=== PATIENT | female | born 1985 | race American Indian/Alaskan Native ===

== ENCOUNTER 2017-08-21 00:20 | Outpatient (CLI) | payer MEDICAID ==
[2017-08-21] MEDS ORDERED: LACTATED RINGERS 1,000 ML IV ONE (00:34)
[2017-08-21 00:46] VITALS: BP 134/78
[2017-08-21 01:04] LABS: Bilirubin,Urine NEG (Negative); Blood,Urine NEG (Negative); Color,Urine Yellow (Yellow); Mucus,Urine 1+ /HPF; Urobilinogen,Urine < 2.0 mg/dL (<2.0)
[2017-08-21] MEDS ORDERED: BRETHINE SUB-Q PRN (02:35)
== END 2017-08-21 03:15 | disposition home or self-care (01) ==
LOC: TRG 00:20
PROVIDERS: ATTEND Obstetrics & Gynecology
DX: O47.03 False labor before 37 completed weeks of gestation, third trimester (principal); Z3A.35 35 weeks gestation of pregnancy
CPT/HCPCS: 59025; 81001; 96360; 96372; J3105; J7120

== ENCOUNTER 2017-09-06 19:30 | Outpatient (CLI) | payer MEDICAID ==
[2017-09-06 21:34] VITALS: BP 135/88
--- NOTE | 2017-09-07 00:23 | Ultrasound Report ---
FINAL REPORT EXAM: US OB LIMITED HISTORY: wellbeing TECHNIQUE: Transabdominal sonographic evaluation was performed of the female pelvis with and without color Doppler imaging. PRIORS: None. FINDINGS: Single intrauterine . Amniotic fluid index estimated at 11.5 cm (normal range 7-24 cm). heart rate 148 beats per minute. Measurements: Last menstrual period-12/18/2016. Estimated date 37 weeks 3 days. IMPRESSION: Single, viable intrauterine with amniotic fluid index measuring within normal limits and heart rate measuring 148 beats per minute.
--- NOTE | 2017-09-07 00:26 | Ultrasound Report ---
FINAL REPORT EXAM: US OB BPP WO NON-STRESS HISTORY: wellbeing TECHNIQUE: Transabdominal sonographic evaluation was performed of the female pelvis with and without color Doppler imaging. PRIORS: None. FINDINGS: A single, viable intrauterine is present. Measurements: heart rate: 148 beats per minute. Amniotic fluid index: 11.5 cm Biophysical profile breathing movements, score 2 movement: Score 2 posture and tone: 2 Qualitative amniotic fluid value: 2 Total score for biophysical profile 8/8. IMPRESSION: Single, viable intrauterine present. Biophysical profile score 8/8.
== END 2017-09-07 00:24 | disposition home or self-care (01) ==
LOC: TRG 19:30
PROVIDERS: ATTEND Obstetrics & Gynecology
DX: O26.893 Other specified pregnancy related conditions, third trimester (principal); R10.9 Unspecified abdominal pain; Z3A.37 37 weeks gestation of pregnancy
CPT/HCPCS: 59025; 76815; 76819

== ENCOUNTER 2017-09-21 12:11 | Outpatient (CLI) | payer MEDICAID ==
[2017-09-21 12:41] VITALS: BP 122/73
--- NOTE | 2017-09-21 14:57 | Ultrasound Report ---
ULTRASOUND OB LIMITED History: Leaking amniotic fluid, rupture of membranes Technique: Transabdominal ultrasound with Doppler interrogation. Gestation: Single Position: Cephalic Amniotic Fluid: Normal CIERRA = 12.8 cm Heart Rate: 152 BPM
--- NOTE | 2017-09-21 14:57 | Ultrasound Report ---
ULTRASOUND BIOPHYSICAL PROFILE: History: well being Technique: Transabdominal ultrasound with Doppler interrogation. 2 - breathing movements 2 - movements 2 - posture and tone 2 - Qualitative amniotic fluid volume 8 - TOTAL SCORE OF POSSIBLE 8 Heart Rate (bpm) 152
== END 2017-09-21 15:20 | disposition home or self-care (01) ==
LOC: TRG 12:11
PROVIDERS: ATTEND Obstetrics & Gynecology
DX: O47.1 False labor at or after 37 completed weeks of gestation (principal); Z3A.39 39 weeks gestation of pregnancy; Z83.3 Family history of diabetes mellitus; Z82.49 Family history of ischemic heart disease and other diseases of the circulatory system
CPT/HCPCS: 59025; 76815; 76819

== ENCOUNTER 2017-09-28 15:17 | Inpatient (IN) | payer MEDICAID ==
--- NOTE | 2017-09-28 15:28 | History and Physical Report ---
History of Present Illness Date of examination: 09/28/17 Chief complaint: SROM meconium fluid History of present illness: Pt is a 32yo BF EDC 09/24/17; EGA 40 5/7 weeks presents to L&D complaining of SROM @ followed by [facility]'s q 3-5 mins. She received care at [facility] since 12 weeks, and course significant for +HBSag and + HSV and recently Thrombocytopenia. She was also co-managed by [facility] for GDM - diet controlled. records were not available during labor , but GBS was Negative. Past History Past Medical History: diabetes (GDM), hepatitis Past Surgical History: no surgical history [employer] History: hepatitis B, herpes Family/Genetic History: none Social history: no significant social history, single - Obstetrical History Expected Date of Delivery: 09/24/17 Actual Gestation: 40 Week(s) 5 Day(s) : 1 Medications and Allergies Allergies Allergy/AdvReac Type Severity Reaction Status Date / Time No Known Allergies Allergy Verified 08/21/17 00:38 Home Medications Medication Instructions Recorded Confirmed Last Taken Type Ferrous Sulfate [Iron] 325 mg PO 09/06/17 09/05/17 15:00 History Vit,Calc76/Iron/Folic 1 tab 09/06/17 09/05/17 15:00 History [Pnv 29-1 Tablet] Valacyclovir HCl [Valtrex] 500 mg PO 09/06/17 09/05/17 15:00 History Review of Systems All systems: negative - Physical Exam Breasts: Positive: deferred Cardiovascular: Regular rate Lungs: Positive: Clear to auscultation Abdomen: Positive: normal appearance Genitourinary (Female): Positive: normal external genitalia Vagina: Positive: normal moisture Uterus: Positive: enlarged - Obstetrical FHR: category 1 Uterine Contraction Monitor Mode: External Cervical Dilatation: 4 (per nurse) Cervical Effacement Percentage: 90 (per nurse) station: -2 Uterine Contraction Pattern: Regular Uterine Tone Measurement Phase: Contraction Uterine Contraction Intensity: Moderate Results Result Diagrams: 09/29/17 15:50 All other labs normal. Assessment and Plan - Patient Problems (1) 40 weeks gestation of Onset Date: 09/28/17 Current Visit: Yes Status: Acute Plan to address problem: A: IUP @ 40 4/7 weeks in labor ?HBSag Thrombocytopenia GDM - diet controlled P: Admit to L&D for expectant vaginal delivery (2) Thrombocytopenia complicating Onset Date: 09/28/17 Current Visit: Yes Status: Acute (3) GDM (gestational diabetes mellitus) Onset Date: 09/28/17 Current Visit: Yes Status: Acute Qualifiers: Gestational diabetes mellitus control: diet-controlled Trimester: third trimester Qualified Code(s): O24.410 - Gestational diabetes mellitus in , diet controlled
[2017-09-28] MEDS ORDERED: BRETHINE IVP PRN (15:35)
[2017-09-28] MEDS ORDERED: XYLOCAINE 2% INFILTRATI ONE ×2 (15:35→17:56)
[2017-09-28] MEDS ORDERED: STADOL IV PRN (15:35)
[2017-09-28] MEDS ORDERED: BRETHINE SUB-Q PRN (15:35)
[2017-09-28] MEDS ORDERED: PHENERGAN PO PRN ×2 (15:35→17:17)
[2017-09-28] MEDS ORDERED: MINERAL OIL PO PRN (15:35)
[2017-09-28] MEDS ORDERED: POLYCILLIN/NS 2 GM/100 ML 2 GM/100 ML BAG IV ONE (15:35)
[2017-09-28] MEDS ORDERED: SUBLIMAZE IV PRN (15:35)
[2017-09-28] MEDS ORDERED: ZOFRAN IV PRN ×2 (15:35→17:17)
[2017-09-28] MEDS ORDERED: ePHEDrine SULFATE IV PRN (15:35)
[2017-09-28] MEDS ORDERED: PITOCin/NS 20 UNIT/1000ML DRIP 20 UNITS/1,000 ML BAG IV SCH ×2 (16:00→18:00)
[2017-09-28] MEDS ORDERED: PITOCin/NS 30 UNIT/500ML 30 UNITS/500 ML BAG IV SCH ×2 (16:00)
[2017-09-28] MEDS ORDERED: LACTATED RINGERS 1,000 ML IV SCH (16:00)
[2017-09-28 16:29] LABS: Basophils % (Auto) 0.3 % (0.0-1.8); Eosinophils % (Auto) 0.3 % (0.0-4.3); Hemoglobin 12.2 gm/dl (10.1-14.3); Lymphocytes % (Auto) 32.3 % (13.4-35.0); Mean Corpuscular HGB Conc 32 % (30-34); Mean Corpuscular Hemoglobin 26 pg (28-32); Mean Corpuscular Volume 81 fl (79-97); Monocytes # (Auto) 0.5 K/mm3 (0.0-0.8); Monocytes % (Auto) 8.6 % (0.0-7.3); Red Cell Distribution Width 15.2 % (13.2-15.2)
[2017-09-28] MEDS ORDERED: METHERGINE IM ONE ×2 (16:41→17:55)
--- NOTE | 2017-09-28 17:13 | Procedure Note ---
OB Delivery Note - Delivery Date of Delivery: 09/28/17 Surgeon: MENDEZ ELLIS Estimated blood loss: other (700cc) - Vaginal Delivery presentation: vertex Delivery position: OA Intrapartum events: PROM->1hr before delivery, meconium, precipitous labor- <3hr Delivery induction: none Delivery augmentation: rupture of membranes Delivery monitor: external FHT, external uterine Route of delivery: Delivery placenta: spontaneous Delivery cord: 3 umbilical vessels Episiotomy: none Delivery laceration: 2nd degree, vaginal side wall Delivery repair: vicryl Anesthesia: local Delivery comments: Infant delivered OA and placed on Mom's chest for [id number] bonding and delayed cord clamping, cut by Dad - A at 1 minute: 8 at 5 minutes: 9 Gender: Female (3603gms)
[2017-09-28] MEDS ORDERED: MILK OF MAGNESIA PO PRN (17:17)
[2017-09-28] MEDS ORDERED: PHENERGAN PR PRN (17:17)
[2017-09-28] MEDS ORDERED: TYLENOL PO PRN (17:17)
[2017-09-28] MEDS ORDERED: DULCOLAX PR PRN (17:17)
[2017-09-28] MEDS ORDERED: BENADRYL PO PRN (17:17)
[2017-09-28] MEDS ORDERED: TUCKS PAD TP PRN (17:17)
[2017-09-28] MEDS ORDERED: LANSINOH TP PRN (17:17)
[2017-09-28] MEDS: MOTRIN PO SCH (18:00)
[2017-09-28] MEDS ORDERED: SODIUM CHLORIDE FLUSH SYRINGE 10 ML IV NR (18:00)
[2017-09-28 18:38] LABS: Platelet Count 97 K/mm3 (140-440)
[2017-09-28] MEDS ORDERED: AMPICILLIN/NS 1 GM/50 ML 1 GM/50 ML BAG IV SCH (19:37)
[2017-09-28] MEDS: METHERGINE PO SCH (21:00)
[2017-09-28] MEDS: FEOSOL PO SCH (22:40)
[2017-09-28] MEDS: NORCO 5/325 PO PRN (22:40)
[2017-09-28] MEDS: COLACE PO SCH (22:40)
[2017-09-29] MEDS: MOTRIN PO SCH (06:15)
[2017-09-29] MEDS: METHERGINE PO SCH ×2 (06:15→22:07)
[2017-09-29 06:18] LABS: Hematocrit 24.7 % (30.3-42.9); Hemoglobin 7.8 gm/dl (10.1-14.3)
--- NOTE | 2017-09-29 07:23 | Progress Note ---
Assessment and Plan - Patient Problems (1) 40 weeks gestation of Onset Date: 09/28/17 Current Visit: Yes Status: Resolved (2) (normal spontaneous vaginal delivery) Onset Date: 09/29/17 Current Visit: Yes Status: Resolved Plan to address problem: A: S/P - PPD #1 Doing well Symptomatic anemia P: Will repeat H/H and transfuse if still symptomatic (3) Acute blood loss anemia Onset Date: 09/29/17 Current Visit: Yes Status: Resolved Subjective - Subjective Date of service: 09/29/17 Principal diagnosis: s/p - PPD #1 Interval history: Pt is feeling well complained of dizziness this morning - improved now. Bleeding also improved. Patient reports: appetite normal, voiding normally, dizzy ambulation, pain well controlled, flatus, ambulating normally, no nauseated [place]: doing well, nursing well Objective - Vital Signs Latest vital signs: Vital Signs Temp Pulse Resp BP BP 09/28/17 23:30 98.7 F 77 16 101/69 09/28/17 19:30 98.6 F 88 18 99/76 09/28/17 18:22 95 H 115/75 09/28/17 18:00 98.2 F 18 09/28/17 15:59 82 141/94 09/28/17 15:54 96.8 F L 82 141/94 Intake and Output 09/28/17 09/29/17 09/29/17 22:59 06:59 14:59 Intake Total 500 300 Output Total 800 2100 Balance -300 -1800 Intake: Oral 200 300 Intake, Free Water 300 Output: Urine 800 2100 Void 800 2100 Other: Total, Intake Amount 200 300 Total, Output Amount 800 700 # Voids Void 1 1 Weight 92.533 kg Estimated Blood Loss 700 - Exam Breasts: Present: deferred Cardiovascular: Present: Regular rate Lungs: Present: Clear to auscultation Abdomen: Present: normal appearance Uterus: Present: normal, firm, fundal height below umbilicus Extremities: Present: normal - Labs Labs: Abnormal lab results 09/28/17 09/29/17 Range/Units 15:56 06:01 Hgb 7.8 L D (10.1-14.3) gm/dl Hct 24.7 L D (30.3-42.9) % MCH 26 L (28-32) pg Plt Count 97 L (140-440) K/mm3 Stanley % (Auto) 8.6 H (0.0-7.3) % Laboratory Tests 09/28/17 09/28/17 09/28/17 15:56 15:56 Unknown WBC 6.3 RBC 4.70 Hgb 12.2 Hct 38.0 MCV 81 MCH 26 L MCHC 32 RDW 15.2 Plt Count 97 L Lymph % (Auto) 32.3 Stanley % (Auto) 8.6 H Eos % (Auto) 0.3 Baso % (Auto) 0.3 Lymph # 2.0 Stanley # 0.5 Eos # 0.0 Baso # 0.0 Seg Neutrophils % 58.5 Seg Neutrophils # 3.7 Hep Bs Antigen Non-reactive Blood Type O POSITIVE Antibody Screen Negative 09/29/17 06:01 WBC RBC Hgb 7.8 L D Hct 24.7 L D MCV MCH MCHC RDW Plt Count Lymph % (Auto) Stanley % (Auto) Eos % (Auto) Baso % (Auto) Lymph # Stanley # Eos # Baso # Seg Neutrophils % Seg Neutrophils # Hep Bs Antigen Blood Type Antibody Screen
[2017-09-29] MEDS: COLACE PO SCH ×2 (09:40→22:07)
[2017-09-29] MEDS: PRENATAL VITAMIN PO SCH (09:40)
[2017-09-29] MEDS: FEOSOL PO SCH ×2 (09:41→22:07)
[2017-09-29 16:11] LABS: Hematocrit 20.6 % (30.3-42.9); Hemoglobin 6.7 gm/dl (10.1-14.3); Mean Corpuscular HGB Conc 33 % (30-34); Mean Corpuscular Hemoglobin 27 pg (28-32); Mean Corpuscular Volume 82 fl (79-97); Red Blood Count 2.51 M/mm3 (3.65-5.03); Red Cell Distribution Width 15.3 % (13.2-15.2)
[2017-09-29 16:15] LABS: Platelet Count 90 K/mm3 (140-440)
[2017-09-29] MEDS ORDERED: BOOSTRIX IM ONE (17:17)
[2017-09-29] MEDS ORDERED: M-M-R II VACCINE SUB-Q ONE (17:17)
[2017-09-29] MEDS: NORCO 5/325 PO PRN (17:43)
[2017-09-29] MEDS ORDERED: NACL 0.9% 500 ML 500 ML IV ONE (18:25)
[2017-09-29] MEDS ORDERED: BENADRYL IV ONE (18:26)
[2017-09-29] MEDS: TYLENOL PO ONE ×2 (20:25→20:28)
[2017-09-30 06:01] LABS: Hemoglobin 7.9 gm/dl (10.1-14.3); Mean Corpuscular HGB Conc 33 % (30-34); Mean Corpuscular Hemoglobin 27 pg (28-32); Mean Corpuscular Volume 83 fl (79-97); Red Blood Count 2.91 M/mm3 (3.65-5.03); Red Cell Distribution Width 15.4 % (13.2-15.2)
[2017-09-30 06:13] LABS: Platelet Count 94 K/mm3 (140-440)
[2017-09-30] MEDS: NORCO 5/325 PO PRN (07:55)
[2017-09-30] MEDS: FEOSOL PO SCH (07:56)
[2017-09-30] MEDS: COLACE PO SCH (07:56)
[2017-09-30] MEDS: PRENATAL VITAMIN PO SCH (08:00)
[2017-09-30 08:15] LABS: Anisocytosis 1+; Basophils % (Manual) 0 % (0.0-1.8); Eosinophils % (Manual) 0 % (0.0-4.3); Hypochromasia 1+; Ovalocytes Few; Platelet Estimate Consistent w Auto; Total Cells Counted 100
--- NOTE | 2017-09-30 09:03 | Progress Note ---
Assessment and Plan - Patient Problems (1) 40 weeks gestation of Onset Date: 09/28/17 Current Visit: Yes Status: Resolved (2) Thrombocytopenia complicating Onset Date: 09/28/17 Current Visit: Yes Status: Resolved (3) GDM (gestational diabetes mellitus) Onset Date: 09/28/17 Current Visit: Yes Status: Resolved Qualifiers: Gestational diabetes mellitus control: diet-controlled Trimester: third trimester Qualified Code(s): O24.410 - Gestational diabetes mellitus in , diet controlled (4) Acute blood loss anemia Onset Date: 09/29/17 Current Visit: Yes Status: Resolved (5) (normal spontaneous vaginal delivery) Onset Date: 09/29/17 Current Visit: Yes Status: Resolved Plan to address problem: A: S/P - PPD #2 Doing well Asymptomatic anemia - stable P: May go home today. Subjective - Subjective Date of service: 09/30/17 Principal diagnosis: s/p - PPD #2 Interval history: Pt is feeling well without complaints. Bleeding improved. Patient reports: appetite normal, voiding normally, pain well controlled, flatus , ambulating normally, no dizzy ambulation, no nauseated : doing well, nursing well Objective - Vital Signs Latest vital signs: Vital Signs Temp Pulse Resp BP Pulse Ox 09/29/17 23:15 98.2 F 88 16 120/70 99 09/29/17 22:45 98.4 F 98 H 16 112/68 99 09/29/17 22:15 98.7 F 93 H 18 128/69 99 09/29/17 21:45 97.8 F 102 H 18 124/68 99 09/29/17 21:30 97.5 F L 103 H 18 128/69 100 09/29/17 17:43 20 09/29/17 16:15 99.1 F 88 20 111/63 98 09/29/17 11:58 98.4 F 88 20 115/68 100 Intake and Output 09/29/17 09/30/17 09/30/17 22:59 06:59 14:59 Intake Total 200 250 Balance 200 250 Intake: Oral 200 Blood Product 0 250 Leukoreduced Red Blood 0 250 Cells Unit [id number] Other: Total, Intake Amount 200 Voiding Method Toilet # Voids Void 1 - Exam Abdomen: Present: normal appearance, soft Uterus: Present: normal, firm, fundal height below umbilicus Extremities: Present: normal - Labs Labs: Abnormal lab results 09/28/17 09/29/17 09/30/17 Range/Units Unknown 15:50 05:36 RBC 2.51 L 2.91 L (3.65-5.03) M/mm3 Hgb 6.7 L 7.9 L (10.1-14.3) gm/dl Hct 20.6 L 24.0 L (30.3-42.9) % MCH 27 L 27 L (28-32) pg RDW 15.3 H 15.4 H (13.2-15.2) % Plt Count 90 L 94 L (140-440) K/mm3 Seg Neuts % (Manual) 74.0 H (40.0-70.0) % Crossmatch See Detail
--- NOTE | 2017-09-30 09:11 | Discharge Summary ---
Providers - Providers Date of Admission: 09/28/17 15:34 Date of discharge: 09/30/17 Attending physician: MENDEZ ELLIS Primary care physician: MENDEZ ELLIS Hospitalization Reason for admission: active labor, rupture of membranes, IUP at term Delivery: Episiotomy: none Laceration: vaginal side wall, 2nd degree Other procedures: none complications: transfusion Discharge diagnosis: IUP at term delivered Stanley baby: female Hospital course: Unremarkable except for hemorrhage requiring a blood transfusion. Pt also had thrombocytopenia which has stabilized. Condition at discharge: Good Disposition: DC-01 TO HOME OR SELFCARE - Discharge Diagnoses (1) 40 weeks gestation of Status: Resolved (2) Thrombocytopenia complicating Status: Resolved (3) GDM (gestational diabetes mellitus) Status: Resolved Qualifiers: Gestational diabetes mellitus control: diet-controlled Trimester: third trimester Qualified Code(s): O24.410 - Gestational diabetes mellitus in , diet controlled (4) Acute blood loss anemia Status: Resolved (5) (normal spontaneous vaginal delivery) Status: Resolved (6) hemorrhage Status: Resolved Qualifiers: hemorrhage type: third-stage Qualified Code(s): O72.0 - Third- stage hemorrhage Plan - Discharge Medications Prescriptions: Acetaminophen [Acetaminophen TAB] 650 mg PO Q4H PRN #30 tablet PRN Reason: Pain MILD(1-3)/Fever >100.5/GUTIÉRREZ Ferrous Sulfate [Feosol 325 MG tab] 325 mg PO BID #60 tablet Vit-Fe Fumar-FA [ Vitamin] 1 each PO QDAY #30 tablet - Provider Discharge Summary Activity: routine, no sex for 6 weeks, no heavy lifting 4 weeks, no strenuous exercise Diet: routine Instructions: routine Additional instructions: [] Smoking cessation referral if applicable(refer to patient education folder for contact #) [] Refer to [facility] Booklet Call your doctor immediately for: * Fever > 100.5 * Heavy vaginal bleeding ( >1 pad per hour) * Severe persistent headache * Shortness of breath * Reddened, hot, painful area to leg or breast * Drainage or odor from incision. * Keep incision clean and dry at all times and follow doctor's instructions regarding bathing/showering - Follow up plan Follow up: MENDEZ ELLIS MD [Primary Care Provider] - 14 Days
[2017-09-30 11:43] VITALS: BP 113/62
[2017-09-30] MEDS: MOTRIN PO SCH (13:02)
[2017-09-30] MEDS: METHERGINE PO SCH ×2 (13:10→13:11)
== END 2017-09-30 15:36 | disposition home or self-care (01) | DRG 774 ==
LOC: TRG 15:17 → LD 15:34 → OB 18:50
PROVIDERS: ADMIT Obstetrics & Gynecology; ATTEND Obstetrics & Gynecology
PROC: 10E0XZZ Delivery of Products of Conception, External Approach (ICD-10-PCS; principal; 2017-09-28)
PROC: 0KQM0ZZ Repair Perineum Muscle, Open Approach (ICD-10-PCS; 2017-09-28)
PROC: 30233N1 Transfusion of Nonautologous Red Blood Cells into Peripheral Vein, Percutaneous Approach (ICD-10-PCS; 2017-09-29)
DX: O99.12 Other diseases of the blood and blood-forming organs and certain disorders involving the immune mechanism complicating childbirth (principal); O98.32 Other infections with a predominantly sexual mode of transmission complicating childbirth; O24.420 Gestational diabetes mellitus in childbirth, diet controlled; O42.02 Full-term premature rupture of membranes, onset of labor within 24 hours of rupture; O77.0 Labor and delivery complicated by meconium in amniotic fluid; O62.3 Precipitate labor; O70.1 Second degree perineal laceration during delivery; O90.81 Anemia of the puerperium; D62 Acute posthemorrhagic anemia; D69.6 Thrombocytopenia, unspecified; Z3A.40 40 weeks gestation of pregnancy; Z37.0 Single live birth; A60.00 Herpesviral infection of urogenital system, unspecified
CPT/HCPCS: 36415; 85007; 85014; 85018; 85025; 85027; 86706; 86850; 86900; 86901; 86920; 88307; 99211; A6250; G0463; J0290; J1200; J2210; J2590; J7040; J7120; P9016